=== PATIENT | male | born 1985 | race Caucasian/White ===

== ENCOUNTER 2016-05-10 19:50 | Emergency (ER) | payer SELFPAY ==
[~2016-05-10] VITALS: Ht 170.2 cm; Wt 60.0 kg
[~2016-05-10 19:50] MED LIST: NAPROSYN500 MG PO; ULTRAM50 MG PO
[2016-05-10] MEDS ORDERED: PREDNISONE20 MG PO (23:22)
[2016-05-11 00:26] VITALS: BP 147/75
== END 2016-05-11 00:27 | disposition home or self-care (01) ==
LOC: RME 19:50 → EME 19:50 → RME 05-11 00:27
DX: S60.221A Contusion of right hand, initial encounter (principal); W22.8XXA Striking against or struck by other objects, initial encounter
CPT/HCPCS: 73130; 99281; 99283; J7512

== ENCOUNTER 2017-11-27 04:49 | Emergency (ER) | payer SELFPAY ==
[~2017-11-27] VITALS: Ht 175.3 cm; Wt 68.4 kg
[~2017-11-27 04:49] MED LIST changes: +PREDNISONE20 MG PO
[2017-11-27] MEDS ORDERED: MIRALAX17 GM PO (05:14)
[2017-11-27] MEDS ORDERED: ULTRAM50 MG PO (05:14)
[2017-11-27 05:51] VITALS: BP 122/78
== END 2017-11-27 05:51 | disposition home or self-care (01) ==
LOC: EME 04:49
DX: K64.4 Residual hemorrhoidal skin tags (principal); Z88.6 Allergy status to analgesic agent; Z88.5 Allergy status to narcotic agent
CPT/HCPCS: 99281; 99284; J1885